=== PATIENT | male | born 1970 | race Caucasian/White ===

== ENCOUNTER → 2020-01-24 09:06 | Outpatient (BNVA) | payer BC, SELFPAY | PROVIDERS: Visit Provider Nurse Practitioner Family | DX: Z13.1 Encounter for screening for diabetes mellitus (principal); Z13.220 Encounter for screening for lipoid disorders; Z12.5 Encounter for screening for malignant neoplasm of prostate | CPT/HCPCS: 80048; 80061; G0103 ==

== ENCOUNTER → 2020-02-24 16:34 | Outpatient (BNVA) | payer BC, SELFPAY | PROVIDERS: Visit Provider Internal Medicine | DX: Z01.818 Encounter for other preprocedural examination (principal); Z80.0 Family history of malignant neoplasm of digestive organs | CPT/HCPCS: 87635 ==

== ENCOUNTER 2020-02-28 08:28 | Day surgery (SDC) | payer BC, SELFPAY ==
[2020-02-25 13:19] VITALS: BMI 28.5
[2020-02-28 08:51] VITALS: BP 102/69; PULSE 52; RESP 18; TEMP 36.7; O2SAT 97
[2020-02-28] MEDS: sodium chloride 0.9% 1,000 ML 30 ML IV (09:05)
--- NOTE | 2020-02-28 09:34 | ANES.PREANE2 ---
Pre-Anesthetic Assessment Pre-Anesthetic Assessment: Height/Weight: Height 1.83 m Weight 95.254 kg Temp Pulse Resp BP Pulse Ox 98.0 F 52 L 18 102/69 97 02/28/20 08:51 02/28/20 08:51 02/28/20 08:51 02/28/20 08:51 02/28/20 08:51 Preop Diagnosis: fh Proposed Procedure: Operation Date: 02/28/20 09:30 Proposed Procedures p Colonoscopy 65845 Z80.0(Not Applicable) - William Reeder MD Was Beta Judd taken within 24 hours: N/A Last intake: Intake Last Liquid Date 02/27/20 Last Liquid Time 20:00 Last Solid Date 02/26/20 Last Solid Time 20:00 Social: Social History: No alcohol and No tobacco Exam: Pre-Anes Outpt Exam: alert, oriented x 3, clear to auscultation bilaterally and regular rate & rhythm Airway: Submandibular: WNL Cervical ROM: WNL MP: 2 Dentition: Full Pulmonary: Pulmonary: None reported CV/HEM: CV/HEM: None reported : Comments: BPH Hepatic: Hepatic: None reported GI: GI: None reported Metabolic: Metabolic: None reported Musc/skel: Musc/skel: None reported Neuropsych: Neuropsych: None reported Anesthetic Plan: ASA status: 2 Anesthesia: MAC Risk of > 500 ml blood loss (7ml/kg in children): No Meds/Allergies Current Medications: Current Medications Generic Name Dose Route Start Last Admin Trade Name Freq PRN Reason Stop Dose Admin Sodium Chloride 1,000 mls @ 30 ml s/hr 02/28/20 08:45 02/28/20 09:05 Sodium Chloride 0.9% IV 30 mls/hr .Q24H NATALEE Administration PFSH Anesthesia PFSH: Family History Mother Cancer Father Cancer throat Prostate Social History (Updated 02/24/20 @ 14:44 by LEN Camara) Smoking and tobacco status: former smoker Alcohol intake: current Alcohol intake frequency: holidays/special occasions only Adopted: No Marital status: Number of children: 3 service: No History of recent travel: No Current gender identity: Male Data Anesthesia Cardiac Studies: No Data to Display
[2020-02-28 10:24] VITALS: BP 103/64; PULSE 52; RESP 16; TEMP 36.2; O2SAT 96
--- NOTE | 2020-02-28 11:50 | ANE.PACU2 ---
Inpatient post-anesthesia follow up: Airway intact: Yes Vital signs: Temperature 97.2 F Pulse Rate 52 Respiratory Rate 16 Blood Pressure 103/64 Pulse Oximetry 96 Oxygen Delivery Me thod Room Air Oxygen Flow Rate Fraction of Inspir ed Oxygen Hydration adequate: Yes Nausea and vomiting: No Pain level: 1 Mental status: Baseline
--- NOTE | 2020-03-23 11:49 | W.PM.OPSUD ---
Surgery/Procedure H&P Update DATE OF PROCEDURE: March 23, 2020 DATE H&P PERFORMED: 02/24/20 PREOP DIAGNOSIS: fh PLANNED PROCEDURE: Operation Date: 02/28/20 09:30 Proposed Procedures p Colonoscopy 40286 Z80.0(Not Applicable) - William Reeder MD
== END 2020-02-28 10:56 | disposition home or self-care (01) ==
PROVIDERS: Visit Provider Internal Medicine
PROC: 0DJD8ZZ Inspection of Lower Intestinal Tract, Via Natural or Artificial Opening Endoscopic (ICD-10-PCS; CPT 45378; principal; 2020-02-28 09:30)
DX: Z12.11 Encounter for screening for malignant neoplasm of colon (principal); Z80.0 Family history of malignant neoplasm of digestive organs; Z87.891 Personal history of nicotine dependence; N40.0 Benign prostatic hyperplasia without lower urinary tract symptoms
CPT/HCPCS: 12345; 45378; J2704; J7030

== ENCOUNTER 2020-10-22 14:14 | Emergency (ER) | payer OTHER, SELFPAY ==
[2020-10-22 14:52] VITALS: BP 108/72; PULSE 95; RESP 18; TEMP 37.1; O2SAT 95; BMI 27.1
--- NOTE | 2020-10-22 16:09 | XR_ITS ---
WS: [id number] CHEST XRAY TECHNIQUE: Portable chest. CLINICAL INFORMATION: SOB COMPARISON: None. FINDINGS: Shallow inspiration. Heart: Cardiomegaly. Lungs: Patchy bilateral perihilar infiltrates. Recommend correlation for pneumonia. Trace pleural flu id or pleural thickening at the costophrenic angles. No focal consolidation. Bones: Normal visualized bony structures. XR/XR chest 1V portable [id number] IMPRESSION: 1. Patchy bilateral perihilar infiltrates. Recommend correlation for pneumonia . 2. Trace bilateral pleural fluid or pleural thickening.
--- NOTE | 2020-10-22 17:50 | ED_ITS ---
HPI - COVID General: Chief Complaint: COVID symptoms Stated Complaint: SOB LOW O2 Time Seen by Provider: 10/22/20 17:49 Triage information: Has fever, cough or shortness of breath . No known COVID + exposure last 14 days History of Present Illness: HPI Narrative: Patient is a 50-year-old male who comes to the ED with fever and cough. Symptoms started approximately 8 days ago. He states that he started developing a fever the last couple days. He describes his cough is dry and nonproductive. He feels some occasional shortness of breath that he describes is really mild and that does not affect his activity. denies any lightheadedness or near syncopal episodes. Denies any chest pain but does endorse some body aches. COVID 19 common symptoms: positive fever(s), non-productive cough and body aches; negative chills, productive cough, dyspnea, fatigue, headache(s), throat pain, nasal congestion, nausea, vomiting or diarrhea COVID 19 other sytmptoms: negative chest pain COVID Results: SARS-CoV-2 Antigen (Rapid) Positive (Negative) H 10/22/20 18:01 10/22/20 Nasal/Oral Coronavirus 2019 PCR Negative 02/24/20 16:34 02/24/20 Review of Systems Const: Reports: fever(s) and body aches; Denies: chills or fatigue Eyes: Denies: change in vision or eye discomfort ENMT: Denies: throat pain, odynophagia, nasal discharge or nasal congestion Card: Denies: chest pain, palpitations, edema, swelling of feet/ankles, dyspnea on exertion or orthopnea Resp: Reports: non-productive cough; Denies: dyspnea or productive cough GI: Denies: abdominal pain, nausea, vomiting, diarrhea, constipation or hematochezia : Denies: flank pain, difficulty urinating, dysuria or hematuria Musc: Denies: neck pain, back pain or extremity swelling Skin/Breast: Denies: rash or new lesions Neuro: Denies: headache(s), numbness in extremities or weakness in extremities PFSH ED PFSH: Family History Mother Cancer Father Cancer throat Prostate Social History Smoking and tobacco status: former smoker Alcohol intake: current Alcohol intake frequency: holidays/special occasions only Adopted: No Marital status: Number of children: 3 service: No History of recent travel: No Current gender identity: Male Physical Exam Const: COMMON NORMALS: no acute distress, patient oriented x3, healthy appearing and alert GENERAL APPEARANCE: cooperative and comfortable HENMT: COMMON NORMALS: normocephalic HEAD & SCALP: normocephalic MOUTH: Normal oral and palatal mucosa present THROAT: posterior oropharynx normal and uvula midline Neck/C-Spine: COMMON NORMALS: supple GENERAL: Yes normal visual inspection Resp: COMMON NORMALS: normal respiratory effort, No retractions, No use of accessory muscles and clear to auscultation bilaterally EFFORT & INSPECTION: Yes able to speak in complete sentences, No tachypneic, No respiratory distress, No labored and Yes Actively coughing dry AUSCULTATION: clear to auscultation bilaterally Cardio: COMMON NORMALS: regular rate, regular rhythm, S1 normal heart sound present, S2 normal heart sound present, No gallops present (Cardio), No clicks present (Cardio), No murmurs present (Cardio) and Peripheral pulses 2+ throughout RATE: regular rate RHYTHM: regular rhythm HEART SOUNDS: S1 normal heart sound present and S2 normal heart sound present PERIPHERAL PULSES: Peripheral pulses 2+ throughout GI: COMMON NORMALS: Normal to inspection, nondistended, normoactive bowel sounds present, Soft to palpation, non-tender and no masses PALPATION: Yes Soft to palpation : COMMON NORMALS: Yes no CVA tenderness BLADDER/KIDNEY EXAM: Yes no CVA tenderness Back/Pelvis: COMMON NORMALS: no CVA tenderness Extremity: COMMON NORMALS: normal to inspection Neuro: COMMON NORMALS: patient oriented x3 and moves all extremities SENSORIUM/ORIENTATION: Yes alert Skin: GENERAL SKIN EXAM: dry skin Course ED course: I had patient get up and walk around his room with his pulse ox on. His O2 saturation level stayed 94-96% the whole time and his breathing stayed around the 16-18 respirations per minute rate. He did not appear to be showing any signs of respiratory distress or shortness of breath. Vital Signs: Vital signs: Vital Signs Temperature 98.3 F 10/22/20 19:33 Pulse Rate 70 10/22/20 19:33 Respiratory Rate 18 10/22/20 19:33 Blood Pressure 121/76 10/22/20 19:33 Pulse Oximetry 93 10/22/20 19:33 MDM - COVID MDM Narrative: Medical decision making narrative: Patient is a 50-year-old male comes to the ED with a cough, congestion, fevers and some mild shortness of breath. Vitals are stable and patient's O2 sat is 95% on room air. I had patient get up and move around the room and his O2 saturations stayed above 93% the whole time. He is showing no signs of any labored breathing and respiration rate is normal. Lungs are clear to auscultation bilaterally. Rapid Covid test is positive. Chest x-ray shows some patchy bilateral perihilar infiltrates. While here in the ED patient was given a dose of Decadron. Patient was stable for discharge. He was diagnosed with COVID-19 and sent home with a prescription for azithromycin, Tessalon Perles and an albuterol inhaler. He was instructed on self quarantine procedure. He was told to follow-up with his PCP in 7 to 10 days for reevaluation. Return to ED precautions given. Patient understood and agreed with plan. Lab Data: Labs: Lab Results 10/22/20 Range/Units 18:01 SARS-CoV-2 Ag (Rap id) Positive H (Negative) Imaging Data: CXR: Attestation: I personally reviewed and interpreted this imaging study as follows: Radiologist's impression: [address] [id number] ReportSigned Patient: Cisco Payan #: [id number]: [id number]#:[id number]/Sex: 50 / MADM Date: 10/22/20Loc: ERRoom/Bed:Attending Dr: Ordering Provider/Ordering MD: Stacie Monzon Date of Service: 10/22/20 Procedure(s): XR chest 1V portable [id number] Accession Number(s): [id number] Report Number: [id number] WS: [id number] CHEST XRAY TECHNIQUE: Portable chest. CLINICAL INFORMATION: SOB COMPARISON: None. FINDINGS: Shallow inspiration. Heart: Cardiomegaly. Lungs: Patchy bilateral perihilar infiltrates. Recommend correlation for pneumonia. Trace pleural fluid or pleural thickening at the costophrenic angles. No focal consolidation. Bones: Normal visualized bony structures. XR/XR chest 1V portable [id number] IMPRESSION: 1. Patchy bilateral perihilar infiltrates. Recommend correlation for pneumonia. 2. Trace bilateral pleural fluid or pleural thickening. Dictated By:Kevin Rey MDSigned By:Kevin Rey MDSigned Date/Time:10/22/201648DD/ 45 COVID Results: SARS-CoV-2 Antigen (Rapid) Positive (Negative) H 10/22/20 18:01 10/22/20 Nasal/Oral Coronavirus 2019 PCR Negative 02/24/20 16:34 02/24/20 Discharge Plan Discharge Patient Disposition: Home Clinical Impression: COVID-19 Condition: Stable Prescriptions: New azithromycin 250 mg tablet See Rx Instructions .ROUTE .COMPLEX Qty: 6 RF: 0 albuterol sulfate 90 mcg/actuation HFA aerosol inhaler 2 inh inhalation Q6H PRN (Reason: shortness of breath or wheezing) Qty: 8.5 RF: 0 Tessalon Perles 100 mg capsule 100 mg PO TID PRN (Reason: cough) Qty: 15 RF: 0 No Action tamsulosin [Flomax] 0.4 mg capsule 0.4 mg PO DAILY Qty: 30 RF: 1 Emergen-C 1,000 mg Powder Effervescent In Packet 1 ea PO DAILY RF: 0 Discharge Orders: Discharge ED (Routine); Ordered 10/22/20 Ordered By: Sukhdeep Ray Discharge Diet: Regular Discharge Activity: Resume usual activity Patient Instructions: Viral Syndrome (ED) Activity Restrictions/Additional Instructions: Follow-up with medical provider as directed in 7 days for reevaluation. Continue self quarantine for approximately 10 days from the onset of symptoms or until symptom-free. Take medications as prescribed. Return to the ER or your medical provider if condition worsens. Please read and understand discharge instructions. Thank you for choosing [facility] for your healthcare needs today. Please realize this is an emergency room and that we are providing you with a medical screening exam and this may not be complete and all inclusive of all the testing and or work up that you may need to determine your ailment or severity of your illness. It is very important that you follow up as instructed or that you return to the Emergency Department should you have concerns or if your condition changes or worsens in any way. Coding Level of Care Code ED Administrative Sales Assistant for Chg Fwd Exam Comprehensive
[2020-10-22 17:53] VITALS: PULSE 62; RESP 16; O2SAT 93
[2020-10-22 18:50] LABS: SARS Covid-2 Antigen Positive (Negative)
[2020-10-22] MEDS: dexamethasone 10 mg/mL INJ IM (19:20)
[2020-10-22 19:33] VITALS: BP 121/76; PULSE 70; RESP 18; TEMP 36.8; O2SAT 93
== END 2020-10-22 19:30 | disposition home or self-care (01) ==
PROVIDERS: Physician Assistant; Emergency Provider Physician Assistant
DX: U07.1 COVID-19 (principal); Z87.891 Personal history of nicotine dependence
CPT/HCPCS: 71045; 87426; 96372; 99283; J1100

== ENCOUNTER → 2021-12-15 11:07 | Outpatient (BNVA) | payer OTHER, SELFPAY | PROVIDERS: Visit Provider Nurse Practitioner Family | DX: N40.1 Benign prostatic hyperplasia with lower urinary tract symptoms (principal); N52.9 Male erectile dysfunction, unspecified; Z87.438 Personal history of other diseases of male genital organs | CPT/HCPCS: 84153 ==

== ENCOUNTER → 2022-03-31 16:07 | Outpatient (BNVA) | payer OTHER, SELFPAY | PROVIDERS: Visit Provider Urology | DX: N40.1 Benign prostatic hyperplasia with lower urinary tract symptoms (principal); N52.9 Male erectile dysfunction, unspecified | CPT/HCPCS: 81003 ==

== ENCOUNTER → 2022-06-15 13:09 | Outpatient (BNVA) | payer OTHER, SELFPAY | PROVIDERS: Visit Provider Urology | DX: N40.1 Benign prostatic hyperplasia with lower urinary tract symptoms (principal); N52.9 Male erectile dysfunction, unspecified | CPT/HCPCS: 81003 ==